=== PATIENT | male | born 1975 | race African-American/Black ===

== ENCOUNTER 2022-01-09 11:39 | Emergency (ER) | payer MEDICAID, SELFPAY ==
--- NOTE | 2022-01-09 11:59 | ED.GENADULT ---
HPI - General Adult General Chief complaint: General Medical Stated complaint: shaking, irregular blood sugar Time Seen by Provider: 01/09/22 11:59 Source: patient Mode of arrival: ambulatory Limitations: no limitations History of Present Illness HPI narrative: 46-year-old male with history of insulin-dependent diabetes here with reports of medication refill. Patient tells me he was released from [facility] yesterday after being there for several months. While he was there he was diagnosed with diabetes and started on both oral medications and insulin. He was released yesterday and he was provided with prescriptions for his oral medications. However the patient tells me he did not receive his insulin or prescriptions for his glucometer to check his blood sugar. Patient tells me today he feels generally shaky. His last dose of insulin was yesterday at 11:00. No chest pain, shortness of breath, vomiting, diarrhea, abdominal pain. Related Data Previous Rx's Medication Instructions Recorded blood sugar diagnostic (FreeStyle #100 ea 01/09/22 Lite Strips) blood-glucose meter (FreeStyle #1 ea 01/09/22 Lite Meter) insulin detemir U-100 100 unit/mL 22 unit (0.22 mL) SUBCUT DAILY #15 01/09/22 (3 mL) subcutaneous pen (Levemir ml FlexTouch U-100 Insulin) insulin lispro 100 unit/mL 1 sliding scale dose SUBCUT 01/09/22 subcutaneous pen USEASDIRECTD #15 ml Allergies Allergy/AdvReac Type Severity Reaction Status Date / Time bee pollen [BEE STINGS] Allergy Unknown SWELLING Verified 01/09/22 12:08 Review of Systems Review of Systems: Yes all other systems are reviewed and are negative Constitutional: Constitutional: Reports no additional constitutional complaints, Denies body ache(s), Denies chills, Denies fever(s), Denies headache(s) and Denies weakness Eyes: Eyes: Reports no additional eye complaints and Denies change in vision ENT: Reports system reviewed and no additional complaints, except as documented, Denies dizziness, Denies headache(s), Denies nasal congestion, Denies nasal discharge and Denies neck pain Cardiovascular: Cardiovascular: Reports no additional cardiovascular complaints, Denies chest pain, Denies leg edema and Denies dyspnea Respiratory: Respiratory: Reports no additional respiratory complaints, Denies cough and Denies dyspnea Gastrointestinal: Gastrointestinal: Reports no additional gastrointestinal complaints, Denies abdominal pain, Denies diarrhea, Denies nausea and Denies vomiting Genitourinary: Genitourinary: Denies urinary incontinence Musculoskeletal: Musculoskeletal: Reports no additional musculoskeletal complaints, Denies back pain, Denies arthralgias, Denies joint swelling, Denies neck pain, Denies numbness and Denies tingling Integumentary/Breasts: Skin/Breast: Reports system reviewed and no additional complaints, except as docu and Denies rash Neurologic: Reports system reviewed and no additional complaints, except as documented, Denies dizziness, Denies headache(s), Denies numbness, Denies tingling and Denies weakness PMFSH Past Medical History Attestation statement: The following information was validated with the patient. Source: old records reviewed and nursing notes reviewed Medical History Diabetes Social History Social History Advance Directives: No Advance Directives Information Provided: No Physical Exam ED Vital Signs: Vital Signs - 24 hr 01/09/22 12:05 01/09/22 14:55 Temperature 98.3 F 98.0 F Pulse Rate 103 H 83 Respiratory Rate 20 16 Blood Pressure 133/83 113/74 Pulse Oximetry 97 99 BMI result Body Mass Index 29.8 Const General: cooperative, healthy appearing, comfortable and alert Orientation/consciousness: oriented to person, oriented to place and oriented to time Limitations: no limitations HENMT Head: Yes normal to inspection Ears: hearing grossly normal bilaterally General nose exam: Normal external nose present Face and sinus: Yes normal facial exam Mouth: Normal oral and palatal mucosa present Teeth and gingiva: dentition normal Throat: Yes posterior oropharynx normal, Yes tonsils normal and Yes uvula midline Eyes General: appearance normal, both eyes and all related structures Pupils: Equal, round and reactive pupils present Neck Neck: Yes normal visual inspection, Yes full ROM and Yes no lymphadenopathy Chest Chest palpation & inspection: normal inspection of the chest Resp Effort & Inspection: normal respiratory effort Auscultation: clear to auscultation bilaterally Cardio Rate: regular rate Rhythm: regular rhythm Peripheral pulses: Peripheral pulses 2+ throughout GI Inspection: Yes normal to inspection Palpation (GI): Soft to palpation and nontender General: Yes no CVA tenderness Back/Spine/Pelvis Back: no CVA tenderness Thoracic/Lumbar Spine: thoracic and lumbar spine normal to inspection Skin General skin exam: no rashes or lesions noted Neuro General: oriented to person, oriented to place, oriented to time and moves all extremities Cranial nerves: Yes CN's II-XII intact bilaterally, Yes Equal, round and reactive pupils present, Yes Bilaterally intact EOM present, Yes Nystagmus not present, Yes Normal facial strength present and Yes Midline tongue present Cognition (Neuro): normal cognition Gait exam (Neuro): Normal gait present Motor exam (neuro): 5/5 motor strength present throughout Course Course Course Narrative: 1200-46 yo male with history of IDDM here with complaints of not having his levemir (22units), slide scale ACHS coverage since yesterday morning when being released from care home. Patient diagnosed with DM while he was incarcerated and so he has no PCP. He was released yesterday with all his oral medications but no insulin. Here requesting refills. Feeling shaky. Also needs to a glucometer, strips and lancets Reevaluation(s) Reevaluation #1: Labs are okay with the exception of mild hyperglycemia with no evidence of DKA. Patient was seen by case management. Given referral to establish a primary care doctor. He has oral medications but does not have his Levemir or his lispro coverage for meals and at nighttime. Prescriptions for these were sent to his pharmacy as well as for a glucometer and strips. Reviewed worrisome signs and symptoms of when to return to the emergency department. Comfortable discharge home. Time: 15:09 Medical Decision Making Medical Records Medical records reviewed: Yes I reviewed the patient's medical records. Lab Data Lab results reviewed: Yes I reviewed the patient's lab results. Result diagrams: 01/09/22 12:20 01/09/22 12:20 Labs: Lab Results 01/09/22 01/09/22 01/09/22 Range/Units 12:03 12:20 12:20 WBC 12.5 H (4.8-10.8) X10*3/uL RBC 4.71 (4.60-5.80) X10*6/uL Hgb 13.6 L (14.0-18.0) g/dl Hct 41.5 L (42.0-52.0) % MCV 88.1 (80.0-98.0) fL MCH 28.9 (27.0-33.0) pg MCHC 32.8 (31.0-36.0) g/dl RDW 12.4 (11.0-16.0) % Plt Count 244 (160-400) X10*3/uL MPV 8.8 L (9.4-12.4) fL Immature Gran % (Auto) 0.2 (0.0-0.4) % Neut % (Auto) 74.9 H (45-73) % Lymph % (Auto) 16.3 L (20-40) % Sequoyah % (Auto) 8.5 (2-11) % Eos % (Auto) 0.0 (0-4) % Baso % (Auto) 0.1 (0-2) % Lymph # (Auto) 2.0 (1.2-4.9) X10*3/uL Sequoyah # (Auto) 1.1 (0.1-1.2) X10*3/uL Eos # (Auto) 0.0 (0.0-0.4) X10*3/uL Baso # (Auto) 0.0 (0.0-0.2) X10*3/uL Abs Immat Gran (auto) 0.03 (0.00-0.03) X10*3/uL Absolute Neuts (auto) 9.4 H (2.0-8.3) x10*3/uL Absolute Nucleated RBC 0.000 (0.0-0.012) X10*3/uL Nucleated RBC % (auto) 0.0 (0.0-0.2) /100WBC Sodium 141 (135-145) mmol/L Potassium 4.1 (3.3-5.1) mmol/L Chloride 103 (96-108) mmol/L Carbon Dioxide 25 (22-29) mmol/L Anion Gap 17 (12-20) BUN 20 H (9-16) mg/dL Creatinine 1.21 (0.5-1.4) mg/dL Estim Creat Clear Calc 78.4 Estimated GFR > 60 POC Glucose 227 H (60-115) mg/dL Random Glucose 232 H (60-115) mg/dL Calcium 10.0 (8.4-10.2) mg/dL Urine Color Urine Appearance Urine pH (5.0-8.0) Ur Specific Dawson (1.005-1.025) Urine Protein (NEG-TRACE) MG/DL Urine Glucose (UA) (NEG) MG/DL Urine Ketones (NEG) MG/DL Urine Blood (NEG) Urine Nitrite (NEG) Ur Leukocyte Esterase (NEG) Urine RBC (0) /HPF Urine WBC (0-4) /HPF Ur Squamous Epith Cells /LPF Urine Bacteria /LPF Urine Sperm 01/09/22 Range/Units 15:03 WBC (4.8-10.8) X10*3/uL RBC (4.60-5.80) X10*6/uL Hgb (14.0-18.0) g/dl Hct (42.0-52.0) % MCV (80.0-98.0) fL MCH (27.0-33.0) pg MCHC (31.0-36.0) g/dl RDW (11.0-16.0) % Plt Count (160-400) X10*3/uL MPV (9.4-12.4) fL Immature Gran % (Auto) (0.0-0.4) % Neut % (Auto) (45-73) % Lymph % (Auto) (20-40) % Sequoyah % (Auto) (2-11) % Eos % (Auto) (0-4) % Baso % (Auto) (0-2) % Lymph # (Auto) (1.2-4.9) X10*3/uL Sequoyah # (Auto) (0.1-1.2) X10*3/uL Eos # (Auto) (0.0-0.4) X10*3/uL Baso # (Auto) (0.0-0.2) X10*3/uL Abs Immat Gran (auto) (0.00-0.03) X10*3/uL Absolute Neuts (auto) (2.0-8.3) x10*3/uL Absolute Nucleated RBC (0.0-0.012) X10*3/uL Nucleated RBC % (auto) (0.0-0.2) /100WBC Sodium (135-145) mmol/L Potassium (3.3-5.1) mmol/L Chloride (96-108) mmol/L Carbon Dioxide (22-29) mmol/L Anion Gap (12-20) BUN (9-16) mg/dL Creatinine (0.5-1.4) mg/dL Estim Creat Clear Calc Estimated GFR POC Glucose (60-115) mg/dL Random Glucose (60-115) mg/dL Calcium (8.4-10.2) mg/dL Urine Color YELLOW Urine Appearance HAZY Urine pH 6.0 (5.0-8.0) Ur Specific Dawson >= 1.030 H (1.005-1.025) Urine Protein TRACE (NEG-TRACE) MG/DL Urine Glucose (UA) 500 H (NEG) MG/DL Urine Ketones 15 (NEG) MG/DL Urine Blood TRACE (NEG) Urine Nitrite NEG (NEG) Ur Leukocyte Esterase NEG (NEG) Urine RBC 0-2 (0) /HPF Urine WBC 0 (0-4) /HPF Ur Squamous Epith Cells NONE /LPF Urine Bacteria NONE /LPF Urine Sperm NOTED Discharge Plan Discharge Clinical Impression: Hyperglycemia, Medication refill Patient Disposition: Home, Self-Care Instructions: Diabetic Hyperglycemia (ED), Medicine Refill (ED) Additional Instructions: Your medications were sent to the pharmacy Continue your oral medications as prescribed Follow-up with [facility] to establish a primary care Prescriptions: New (DME) blood-glucose meter [FreeStyle Lite Meter] Kit See Rx Instructions .Route Qty: 1 0RF Rx Instructions: As directed (DME) FreeStyle Lite Strips Strip See Rx Instructions .Route Qty: 100 0RF Rx Instructions: As directed Levemir FlexTouch U-100 Insuln 100 unit/mL (3 mL) insulin pen 22 unit subcut DAILY Qty: 15 0RF insulin lispro 100 unit/mL insulin pen 1 sliding scale dose subcut USEASDIRECTD Qty: 15 0RF Referrals: [facility] [Other] (YOU WILL NEED TO CALL THIS OFFICE TO ARRANGE A NEW PCP APPOINTMENT. THEY ALSO HAVE A PHARMACY IN HOUSE. ) Interventions: ED Discharge Assessment Last Done: 01/09/22 15:30 Discharge Date/Time: 01/09/22 15:30
[2022-01-09 12:05] VITALS: BP 133/83; PULSE 103; RESP 20; TEMP 36.8; O2SAT 97; BMI 29.8
[2022-01-09 12:20] LABS: Glucose, Whole Blood 227 mg/dL (60-115)
[2022-01-09 12:24] LABS: MANUAL DIFF FLAG NO
[2022-01-09 12:29] LABS: Basophils Percent Auto 0.1 % (0-2); Hematocrit 41.5 % (42.0-52.0); Hemoglobin 13.6 g/dl (14.0-18.0); Imm Gran Abs Auto 0.03 X10*3/uL (0.00-0.03); Imm Gran Pct Auto 0.2 % (0.0-0.4); Lymphocytes Percent Auto 16.3 % (20-40); Mean Corpuscular HGB Conc 32.8 g/dl (31.0-36.0); Mean Corpuscular Hemoglobin 28.9 pg (27.0-33.0); Mean Corpuscular Volume 88.1 fL (80.0-98.0); Mean Platelet Volume 8.8 fL (9.4-12.4); Monocytes Absolute Auto 1.1 X10*3/uL (0.1-1.2); Monocytes Percent Auto 8.5 % (2-11); Neutrophils Absolute Auto 9.4 x10*3/uL (2.0-8.3); Neutrophils Percent Auto 74.9 % (45-73); Platelet Count 244 X10*3/uL (160-400); Red Blood Count 4.71 X10*6/uL (4.60-5.80); Red Cell Distribution Width 12.4 % (11.0-16.0); White Blood Count 12.5 X10*3/uL (4.8-10.8)
[2022-01-09 12:45] LABS: Anion Gap 17 (12-20); Blood Urea Nitrogen 20 mg/dL (9-16); Carbon Dioxide 25 mmol/L (22-29); Chloride 103 mmol/L (96-108); Creatinine Clr Calc Pharmacy 78.4; Estimated Glomerular Filt Rate > 60; Glucose Random 232 mg/dL (60-115); Potassium 4.1 mmol/L (3.3-5.1); Sodium 141 mmol/L (135-145)
[2022-01-09 14:55] VITALS: BP 113/74; PULSE 83; RESP 16; TEMP 36.7; O2SAT 99
--- NOTE | 2022-01-09 14:56 | MHC.CM.ED ---
Received case management consult from Rosaline ALFARO. Patient was released from [facility] on 01/08. He was on insulin while incarcerated but was not released with insulin. Patient does not have a PCP. Met with patient in regards to discharge planning. Patient lives with a friend, ambulates independently and had no services prior to coming to the ER. Patient has not received any Covid vaccines and has no HCP. Patient not interested in completing one at this time. Contact info for [facility] provided. Rosaline will provide prescriptions for insulin for a month. Patient verbalizes understanding and has transport home. Rosaline ALFARO aware.
[2022-01-09 15:09] LABS: Appearance Urine HAZY; Color Urine YELLOW; Glucose Urine UA 500 MG/DL (NEG); Leukocyte Esterase Urine NEG (NEG); Nitrite Urine NEG (NEG); Specific Gravity - Urine >= 1.030 (1.005-1.025); UACC Culture Trigger NO; Urine Blood TRACE (NEG); Urine Ketones 15 MG/DL (NEG); Urine Protein TRACE MG/DL (NEG-TRACE)
[2022-01-09 15:23] LABS: RBC Urine 0-2 /HPF (0); Sperm Urine NOTED; WBC Urine 0 /HPF (0-4)
== END 2022-01-09 15:30 | disposition home or self-care (01) ==
PROVIDERS: Nurse Practitioner Family; Emergency Provider Emergency Medicine
DX: E11.65 Type 2 diabetes mellitus with hyperglycemia (principal); Z79.4 Long term (current) use of insulin; Z76.0 Encounter for issue of repeat prescription
CPT/HCPCS: 36415; 80048; 81001; 82947; 85025; 99284